=== PATIENT | male | born 1945 | race Caucasian/White ===

== ENCOUNTER 2017-06-19 17:43 | Emergency (ER) | payer BC, MEDICARE ==
[~2017-06-19] VITALS: Ht 180.3 cm; Wt 108.7 kg
[2017-06-19] MEDS ORDERED: SULF50TA PO (17:54)
[2017-06-19] MEDS ORDERED: ALFU10TA2 PO (17:54)
[2017-06-19] MEDS ORDERED: METO1TAB32 PO (17:54)
[2017-06-19] MEDS ORDERED: CELE1CAP7 PO (17:54)
[2017-06-19 18:35] LABS: BASO % 0.2 % (0.0-1.0); EOS % 0.4 % (0.0-3.0); LARGE UNSTAINED CELL # 0.1 K/mm3 (0.0-0.4); LYMPH # 1.2 K/mm3 (1.5-4.5); LYMPH % 9.4 % (24.0-44.0); MEAN CORPUSCULAR HGB CONC 34.1 g/dl (32.0-36.5); MONO # 0.7 K/mm3 (0.0-0.8); MONO % 6.1 % (0.0-5.0); NEUTROPHILS # 9.4 K/mm3 (1.8-7.7); NEUTROPHILS % 82.9 % (36.0-66.0); PLATELET COUNT, AUTOMATED 187 k/mm3 (150-450); RED CELL DISTRIBUTION WIDTH 13.2 % (11.5-14.5); WHITE BLOOD COUNT 11.3 K/mm3 (4.0-10.0)
[2017-06-19 18:47] LABS: ALBUMIN 3.1 GM/DL (3.2-5.2); ALBUMIN/GLOBULIN RATIO 0.74 (1.00-1.93); ALKALINE PHOSPHATASE 71 U/L (45-117); ALT/SGPT 41 U/L (12-78); ANION GAP 6 MEQ/L (8-16); AST/SGOT 30 U/L (15-37); BILIRUBIN,DIRECT 0.4 MG/DL (0.0-0.2); BILIRUBIN,TOTAL 1.1 MG/DL (0.2-1.0); BLOOD UREA NITROGEN 19 MG/DL (7-18); CALCIUM LEVEL 9.6 MG/DL (8.8-10.2); CARBON DIOXIDE LEVEL 26 MEQ/L (21-32); CHLORIDE LEVEL 105 MEQ/L (98-107); CREATININE FOR GFR 0.87 MG/DL (0.70-1.30); GLOMERULAR FILTRATION RATE > 60.0 (>42); GLUCOSE, FASTING 109 MG/DL (83-110); POTASSIUM SERUM 4.3 MEQ/L (3.5-5.1); SODIUM LEVEL 137 MEQ/L (136-145); TOTAL PROTEIN 7.3 GM/DL (6.4-8.2)
[2017-06-19 18:49] LABS: INR 1.1
[2017-06-19] MEDS ORDERED: ISOVUE-370 76% 100ML VIAL (Q9967) As Ordered ONE (18:50)
[2017-06-19 18:52] LABS: FREE T4 1.15 NG/DL (0.76-1.46)
[2017-06-19] MEDS ORDERED: LABETALOL HCL 200 MG in D5W 160 ML IV SCH (19:15)
--- NOTE | 2017-06-19 19:20 | ECGEPIP ---
Stationary ECG Study [facility] - ED Test Date: 2017-06-19 Pat Name: SHANIQUE BOWDEN Department: Room: - Gender: M [employer]: rn : 1945 Requested By: MANISHA MONK Order Number: [id number] Reading MD: Aydin Mendosa Measurements Intervals [place] Rate: 85 P: 29 DE: 158 QRS: 16 QRSD: 96 T: 50 QT: 351 QTc: 418 Interpretive Statements SINUS RHYTHM WITH FREQUENT VENTRICULAR PREMATURE COMPLEXES NO PRIORS Electronically Signed On 06-19-2017 19:20:25 EDT by Aydin Mendosa
[2017-06-19 19:39] VITALS: BP 119/57
[2017-06-19 20:35] VITALS: BP 89/58
--- NOTE | 2017-06-19 20:50 | REPUSA ---
CLINICAL HISTORY: Thoracic aneurysm. TECHNIQUE: Multiple incremental axial, coronal, sagittal images are obtained from the thoracic inlet to the ischial tuberosities. Intravenous contrast material was administered for the examination as pe r angiographic protocol. COMMENTS: There is no evidence for pulmonary embolism. Ascending aorta is aneurysmal measuring up to 4.5 cm. Aorta is otherwise of normal caliber without evidence for dissection. The heart is moderately enlarged. Large pericardial effusion is present. Effusion is exudative. Pl ease exclude infectious pericarditis clinically among the other possibilities. Severe upper lobes predominant emphysema is seen. Note is made of several nodules this includes an 11 x 7 mm nodule in the superior segment of the righ t lower lobe abutting the major fissure. There is an 8 x 5 mm nodule in the right middle lobe noted. There is no evidence of pleural or parenchymal mass. There are moderate sized bilateral pleural effus ions present. Borderline pulmonary venous congestive changes are seen. There is no evidence of hilar or mediastinal lymphadenopathy. Specifically no evidence for paratracheal and supraclavicular adenop athy. There is no evidence for a chest or abdominal wall nodule or mass. The liver is of uniform attenuation without mass or defect. The gallbladder is not well seen possibly contracted. There is no intrahepatic or extrahepatic biliary ductal dilatation. The spleen is normal . The pancreas is of normal contour and attenuation characteristics. There is no evidence of adrenal mass. Both kidneys demonstrate prompt and equal nephrograms. The kidneys are normal in size, shape an d configuration. Specifically, there is no evidence of renal mass. There is no hydroureter or hydrone phrosis. There is diffuse descending colonic and sigmoid diverticulosis present without evidence of acute dive rticulitis. There is evidence of circumferential wall thickening involving duodenum and jejunum comp atible with enteritis. Consider consultation with GI service. No evidence for small or large bowel obstruction. There is no evidence of abdominal ascites or lymphadenopathy. The prostate gland is moderately enlarged containing calcifications producing mass effect on the blad amanda base. The bladder is not fully distended. The bladder wall appears thickened up to 7 mm. Cystitis is not excluded. There is no pelvic ascites or lymphadenopathy. The bony structures are free of lytic or blastic lesions. IMPRESSION: 1. No evidence for pulmonary embolism. 2. . Ascending aorta is aneurysmal measuring up to 4.5 cm 3. The heart is moderately enlarged. 4. Large pericardial effusion is present. Effusion is exudative. Please exclude infectious pericar ditis clinically among the other possibilities. 5. Severe upper lobes predominant emphysema. 6. Several nodules this includes an 11 x 7 mm nodule in the superior segment of the right lower lobe abutting the major fissure. There is an 8 x 5 mm nodule in the right middle lobe noted. 7. Diffuse descending colonic and sigmoid diverticulosis present without evidence of acute diverticu litis. 8. Circumferential wall thickening involving duodenum and jejunum compatible with enteritis. Consid er consultation with GI service. 9. The prostate gland is moderately enlarged containing calcifications producing mass effect on the bladder base. 10. The bladder is not fully distended. The bladder wall appears thickened up to 7 mm. Cystitis is not excluded.
--- NOTE | 2017-06-20 09:19 | REP ---
CHEST, THREE VIEWS: HISTORY: Chest pain. The lungs are clear. The cardiac silhouette is enlarged. The pulmonary vasculature is normal in appearance. Degenerative change is present in the thoracic spine. IMPRESSION: Cardiomegaly. Signed by Dilip Garcia MD 06/20/2017 09:28 A
== END 2017-06-19 20:42 | disposition short-term general hospital (02) ==
LOC: M ED 17:43
DX: I31.3 Pericardial effusion (noninflammatory) (principal); I10 Essential (primary) hypertension; N40.0 Benign prostatic hyperplasia without lower urinary tract symptoms; I71.2 Thoracic aortic aneurysm, without rupture; Z79.899 Other long term (current) drug therapy
CPT/HCPCS: 36415; 71020; 71275; 74174; 80048; 80076; 82550; 82553; 83690; 83880; 84439; 84443; 85025; 85379; 85610; 85730; 86140; 86850; 86900; 86901; 93005; 93041; 94760; 96374; 99291; Q9967

== ENCOUNTER → 2018-02-03 | Outpatient (CLI) | payer BC ==
[~2018-02-03] MED LIST: PROHANCE 279.3MG/ML 15ML VIAL (A9576) As Ordered; PROHANCE 279.3MG/ML 5ML VIAL (A9576) As Ordered
== END ==
LOC: M RAD 11:08
DX: C34.11 Malignant neoplasm of upper lobe, right bronchus or lung (principal); R93.0 Abnormal findings on diagnostic imaging of skull and head, not elsewhere classified
CPT/HCPCS: A9576

== ENCOUNTER 2018-02-09 10:34 | Outpatient (RCR) | payer BC | END 2018-02-20 | LOC: M ONCR 10:34 | DX: C34.11 Malignant neoplasm of upper lobe, right bronchus or lung (principal); C79.31 Secondary malignant neoplasm of brain | CPT/HCPCS: 77307 ==

== ENCOUNTER → 2018-02-09 | Outpatient (CLI) | payer BC | LOC: M ONCR 09:06 | DX: C34.11 Malignant neoplasm of upper lobe, right bronchus or lung (principal); C79.31 Secondary malignant neoplasm of brain; M06.9 Rheumatoid arthritis, unspecified; I71.9 Aortic aneurysm of unspecified site, without rupture; Z87.891 Personal history of nicotine dependence | CPT/HCPCS: G0463 ==

== ENCOUNTER → 2018-03-17 | Outpatient (CLI) | payer BC ==
[2018-03-17 10:45] LABS: BASO % 0.4 % (0.0-1.0); EOS % 0.7 % (0.0-3.0); HEMATOCRIT 34.2 % (42.0-52.0); HEMOGLOBIN 11.6 g/dl (13.5-17.5); IMMATURE GRANULOCYTE % 1.1 % (0-3.0); LYMPH # 0.6 10^3/uL (1.5-4.5); LYMPH % 22.6 % (24.0-44.0); MEAN CORPUSCULAR HEMOGLOBIN 30.5 pg (27.0-33.0); MEAN CORPUSCULAR HGB CONC 33.9 g/dl (32.0-36.5); MONO # 0.1 10^3/uL (0.0-0.8); MONO % 5.1 % (0.0-5.0); NEUTROPHILS # 1.9 10^3/uL (1.8-7.7); NEUTROPHILS % 70.1 % (36.0-66.0); RED CELL DISTRIBUTION WIDTH 13.8 % (11.5-14.5); WHITE BLOOD COUNT 2.7 10^3/uL (4.0-10.0)
[2018-03-17 11:15] LABS: PLATELET COUNT, AUTOMATED 53 10^3/uL (150-450)
[2018-03-17 11:16] LABS: IMMATURE PLATELET FRACTION % 3.4 % (0.0-10.9); PLATELET F 1.8
[2018-03-17 11:25] LABS: ALBUMIN 2.1 GM/DL (3.2-5.2); ALBUMIN/GLOBULIN RATIO 0.49 (1.00-1.93); ALKALINE PHOSPHATASE 84 U/L (45-117); ALT/SGPT 59 U/L (12-78); ANION GAP 4 MEQ/L (8-16); AST/SGOT 47 U/L (7-37); BLOOD UREA NITROGEN 31 MG/DL (7-18); CALCIUM LEVEL 8.9 MG/DL (8.8-10.2); CARBON DIOXIDE LEVEL 33 MEQ/L (21-32); CHLORIDE LEVEL 99 MEQ/L (98-107); CREATININE FOR GFR 0.71 MG/DL (0.70-1.30); GLOMERULAR FILTRATION RATE > 60.0 (>42); GLUCOSE, FASTING 116 MG/DL (70-100); POTASSIUM SERUM 4.3 MEQ/L (3.5-5.1); SODIUM LEVEL 136 MEQ/L (136-145); TOTAL PROTEIN 6.4 GM/DL (6.4-8.2)
== END ==
LOC: M LAB 08:58
DX: C34.11 Malignant neoplasm of upper lobe, right bronchus or lung (principal)
CPT/HCPCS: 80053